=== PATIENT | male | born 1995 | race African-American/Black ===

== ENCOUNTER 2019-01-31 19:07 | Emergency (ER) | payer MEDICAID ==
[~2019-01-31] VITALS: Ht 175.3 cm; Wt 77.1 kg
[2019-01-31] MEDS ORDERED: LIDOCAINE W/ EPINEPHRINE 2% INJ 20ML VIAL IJ ONE (21:00)
[2019-01-31] MEDS ORDERED: cefTRIAXone SOD 1,000 MG VL IM ONE (21:30)
[2019-01-31] MEDS ORDERED: TETANUS-DIPTH-ACEL PERTUSSIS 0.5ML SYRG IM ONE (21:30)
[2019-01-31 21:43] VITALS: BP 134/86
== END 2019-01-31 22:10 | disposition home or self-care (01) ==
LOC: ER 19:11
DX: S61.411A Laceration without foreign body of right hand, initial encounter (principal); Z23 Encounter for immunization; V87.8XXA Person injured in other specified noncollision transport accidents involving motor vehicle (traffic), initial encounter; Y93.55 Activity, bike riding; Y92.488 Other paved roadways as the place of occurrence of the external cause; Y99.8 Other external cause status
CPT/HCPCS: 12002; 73120; 90471; 90715; 96372; 99283; J0696

== ENCOUNTER 2019-04-16 07:02 | Emergency (ER) | payer MEDICAID ==
[~2019-04-16] VITALS: Ht 177.8 cm; Wt 83.9 kg
[2019-04-16 07:15] VITALS: BP 129/72
== END 2019-04-16 09:00 | disposition home or self-care (01) ==
LOC: ER 07:02
DX: J06.9 Acute upper respiratory infection, unspecified (principal)

== ENCOUNTER 2020-12-07 09:26 | Emergency (ER) | payer MEDICAID ==
[~2020-12-07] VITALS: Ht 177.8 cm; Wt 83.9 kg
[2020-12-07 09:38] VITALS: BP 156/91
== END 2020-12-07 10:47 | disposition home or self-care (01) ==
LOC: ER 09:26
DX: J06.9 Acute upper respiratory infection, unspecified (principal); M79.10 Myalgia, unspecified site; R19.7 Diarrhea, unspecified; F17.210 Nicotine dependence, cigarettes, uncomplicated; Z20.822 Contact with and (suspected) exposure to COVID-19
CPT/HCPCS: 36415; 71045; 87426

== ENCOUNTER 2021-12-18 21:22 | Emergency (ER) | payer MEDICAID ==
[~2021-12-18] VITALS: Ht 177.8 cm; Wt 87.0 kg
[2021-12-18 21:50] VITALS: BP 130/70
== END 2021-12-19 02:26 | disposition left against medical advice (07) ==
LOC: ER 21:22
DX: R56.9 Unspecified convulsions (principal); Z53.21 Procedure and treatment not carried out due to patient leaving prior to being seen by health care provider

== ENCOUNTER 2024-06-13 05:28 | Emergency (ER) | payer MEDICAID ==
[~2024-06-13] VITALS: Ht 177.8 cm; Wt 95.0 kg
[2024-06-13] MEDS: LIDOCAINE 1% HCL (LOCAL ANESTH.) INJ 20ML MDV IJ ONE (06:41)
[2024-06-13 06:45] VITALS: BP 148/99; PULSE 83; RESP 16; TEMP 98.5; O2SAT 96
--- NOTE | 2024-06-13 06:53 | ED.PDOC ---
HPI Comments A 29 YEAR OLD MALE PRESENTS TO THE ED WITH CHIEF COMPLAINT OF LACERATION. PATIENT REPORTS THAT HE WAS AT WORK AT A [employer] WHEN A RACK OF TIRES ACCIDENTALLY FELL ON TOP OF HIM YESTERDAY. PATIENT RELAYS THAT THE RACK LACERATED HIS UPPER CHEST WALL, LEFT ANTERIOR SHOULDER, AND UPPER BACK. BLEEDING CONTROLLED. PATIENT DENIES FALL INJURY, SOB, CHEST PAIN, DIZZINESS, HEAD INJURY, NECK PAIN, BACK PAIN, NUMBNESS, OR WEAKNESS. NO OTHER SYMPTOMS REPORTED AT THIS TIME OF CARE. NO OTHER SYMPTOMS REPORTED AT THIS TIME OF CARE. Chief Complaint: Laceration Time Seen by MD: 06:35 Primary Care Provider: NONE Reviewed Notes: Nurses Notes, Medications, Allergies Allergies: Coded Allergies: NO KNOWN ALLERGIES (Unverified , 12/07/20) Information Source: Patient Mode of Arrival: Ambulatory Severity: Mild, Moderate Severity of Laceration: Controlled Bleeding Complexity: Simple Timing: Days Prehospital treatment: None Laceration Location: Chest, Other (LEFT SHOULDER) Mechanism: Metal, Work Related Last Tetanus: > 5 Years, Unknown Laceration Length (cm): 7 Skin Type: Linear Depth of Injury: SQ Tendon Injury: 0% Capillary Refill: < 3 seconds Tender: Mild, Moderate Discharge: Serosanguinous Erythema: Localized to Wound Edges Associated Signs and Symptoms: None Past Medical History PAST MEDICAL HISTORY: Denies Surgical History: Denies all surgeries Family History Family History: Reviewed,noncontributory to illness, No family hx of Cancer, No family hx of DM, No family hx of Heart kassy, No family hx of HTN, No family hx ofKidney kassy, No family hx of Liver kassy, No family hx of Lung kassy, No family hx of Stroke Social History Smoker: Cigarettes Alcohol: Occasionally Drugs: Marijuana Lives In: Home Constitutional: denies: chills, diaphoresis, fatigue, fever, malaise, sweats, weakness, others EENTM: denies: blurred vision, double vision, ear bleeding, ear discharge, ear drainage, ear pain, ear ringing, eye pain, eye redness, hearing loss, mouth pain, mouth swelling, nasal discharge, nose bleeding, nose congestion, nose pain, photophobia, tearing, throat pain, throat swelling, voice changes, others Respiratory: denies: cough, hemoptysis, orthopnea, SOB at rest, shortness of breath, SOB with excertion, stridor, wheezing, others Cardiovascular: denies: chest pain, dizzy spells, diaphoresis, Dyspnea on exertion, edema, irregular heart beat, left arm pain, lightheadedness, palpitations, PND, syncope, others Gastrointestinal: denies: abdomen distended, abdominal pain, blood streaked bowels, constipated, diarrhea, dysphagia, difficulty swallowing, hematemesis, melena, nausea, poor appetite, poor fluid intake, rectal bleeding, rectal pain, vomiting, others Genitourinary: denies: burning, dysuria, flank pain, frequency, hematuria, incontinence, penile discharge, penile sore, pain, testicle pain, testicle swelling, urgency, others Neurological: denies: dizziness, fainting, headache, left sided numbness, left sided weakness, numbness, paresthesia, pre-existing deficit, right sided numbness, right sided weakness, seizure, speech problems, tingling, tremors, weakness, others Musculoskeletal: denies: back pain, gout, joint pain, joint swelling, muscle pain, muscle stiffness, neck pain, others Integumetry: reports: laceration (LACERATIONS TO LEFT CHEST, LEFT SHOULDER, AND POSTERIOR LEFT SHOULDER); denies: bruises, change in color, change in hair/nails, dryness, lesions, lumps, rash, wounds, others Allergic/Immunocompromised: denies: Difficulty Healing, Frequent Infections, Hives, Itching, others Hematologic/Lymphatic: denies: anemia, blood clots, easy bleeding, easy bruising, swollen glands, others Endocrine: denies: excessive hunger, excessive sweating, excessive thirst, excessive urination, flushing, intolerance to cold, intolerance to heat, unexplained weight gain, unexplained weight loss, others Psychiatric: denies: anxiety, bipolar disorder, depression, hopeless, panic disorder, schizophrenia, sleepless, suicidal, others All Other Systems: Reviewed and Negative Physical Exam General Appearance: No Apparent Distress, Normal HEENT: Normal ENT Inspection, PERRL/EOMI Neck: Full Range of Motion, Non-Tender, Normal, Normal Inspection Respiratory: Chest Non-Tender, Lungs Clear, No Accessory Muscle Use, No Respiratory Distress, Normal Breath Sounds Cardiovascular: No Edema, No JVD, No Murmur, No Gallop, Normal Peripheral Pulses, Regular Rate/Rhythm Breast Exam: Deferred Gastrointestinal: No Organomegaly, Non Tender, No Pulsatile Mass, Normal Bowel Sounds, Soft Genitalia: Deferred Pelvic: Deferred Rectal: Deferred Extremities: No calf tenderness, Normal capillary refill, Normal inspection, Normal range of motion, Non-tender, No pedal edema Musculoskeletal : Apperance: Normal Neurologic: Alert, procurement consultant II-XII nml as Tested, No Motor Deficits, Normal Affect, Normal Mood, No Sensory Deficits Cerebellar Function: Normal Reflexes: Normal Skin: Dry, Lacerations (2CM LACERATION ON UPPER CHEST WALL, 2CM LACERATION ON LEFT ANTERIOR SHOULDER AND 3CM LACERATION ON MIDDLE UPPER BACK, NO BLEEDING AND SWELLING, NO FB. ), Normal Color, Warm Peripheral Pulses: 2+ carotid (R), 2+ carotid (L) Lymphatic: No Adenopathy Was a procedure done? Was a procedure done?: Yes Sedation Sedation?: No Laceration Repair : Location UPPER CHEST WALL, LEFT ANTERIOR SHOULDER, AND UPPER BACK WALL Length 2CM, 2CM, 3CM Anesthetic: Lidocaine, Without epi Laceration Repair Prep: Saline, by Irrigation, Manual Scrub Laceration Repair Wound Comple: subcut tissue repair Laceration Repair: Number of sutures (13, 4-0 ETHILON SUTURES), SQ, Size (4- 0), Simple, Bacitracin, Gauze Informed consent obtained: No Risks, benefits, and alternati: Yes Images 1 - 2 - 3 - Differential diagnosis Generic Laceration: Laceration X-Ray, Labs, Meds, VS Vital Signs Date Time Temp Pulse Resp B/P (MAP) Pulse Ox O2 Delivery O2 Flow Rate FiO2 06/13/24 06:45 98.5 83 16 148/99 (115) 96 98.5 06/13/24 06:45 83 16 96 Room Air 06/13/24 05:49 98.5 83 16 148/99 (115) 96 Current Medications Medications (Trade) Dose Ordered Sig/Maricruz Route Start Time Stop Time Status Last Admin Diphtheria/ Tetanus/Acell Pertussis (Boostrix T-Dap) 0.5 ml ONCE ONCE IM 06/13/24 07:00 06/13/24 07:01 DC 06/13/24 07:04 X-Ray, Labs, Meds, VS Comment EXTERNAL MEDICAL RECORDS REVIEWED: [NONE] INDEPENDENT HISTORIANS: [NONE] SOCIAL DETERMINANTS OF HEALTH: [NONE] LABS ORDERED: NONE REVIEWED AND INTERPRETED RESULTS: CHEST XR INTERPRETED BY ME. NO ACUTE FINDINGS. NO PNEUMONIA. NO CONSOLIDATIONS. NO INFILTRATES. PENDING RADIOLOGIST REPORT. IMAGING ORDERED: CHEST XR TREATMENTS ORDERED: TD 0.5ML IM PROCEDURES PERFORMED: SUTURED 3 LACERATIONS WITH 4-0 ETHILON SUTURES. CRITICAL CARE TIME: NONE I HAVE DISCUSSED THE PATIENT WITH THE ATTENDING PHYSICIAN DR. AIKEN AND HE AGREES WITH THE PATIENT'S PLAN OF CARE AND DISPOSITION. BASED ON HISTORY OF PRESENT ILLNESS, AND PHYSICAL EXAM, PATIENT WILL BE DISCHARGED HOME. DISCUSSED PLAN FOR DISCHARGE HOME WITH RX. MEDICATION WARNINGS GIVEN. SHARED DECISION MAKING: DISCUSSED WITH PATIENT THAT THEIR WORKUP WAS NORMAL. PATIENT INSTRUCTED TO FOLLOW UP WITH PRIMARY CARE PROVIDER IN 1-2 DAYS FOR RE- EVALUATION OF SYMPTOMS. PATIENT VERBALIZES UNDERSTANDING TO RETURN TO ED FOR NEW OR WORSENING SYMPTOMS OR IF FOLLOW UP WITH PCP CANNOT BE OBTAINED. PATIENT FEELS COMFORTABLE GOING HOME AT THIS TIME. ALL QUESTIONS ADDRESSED AT TIME OF DISCHARGE. Time of 1ST Reevaluation: 07:10 Reevaluation 1ST: Improved Patient Education/Counseling: Diagnosis, Treatment, Need For Follow Up Family Education/Counseling: Diagnosis, Treatment, No Family Present Medical Screening: No EMC Exist At This Time Departure 1 Departure Time of Disposition: 07:10 Impression: Primary Impression: Laceration of chest wall Qualified Codes: S21.112A - Laceration without foreign body of left front wall of thorax without penetration into thoracic cavity, initial encounter Additional Impressions: Laceration of back Qualified Codes: S21.212A - Laceration without foreign body of left back wall of thorax without penetration into thoracic cavity, initial encounter Laceration of left shoulder Qualified Codes: S41.012A - Laceration without foreign body of left shoulder, initial encounter Disposition: 01 HOME / SELF CARE / HOMELESS Condition: Stable Additional Instructions: FOLLOW-UP WITH PCP IN 1 TO 2 DAYS. TAKE MEDICATIONS PRESCRIBED. RETURN TO ED FOR ANY NEW OR WORSENING SYMPTOMS. Discharged With: Self Critical Care Note Critical Care Time?: No Stability Stability form required: No Heart Score Heart Score: Heart Score Response (Comments) Value History N/A 0 EKG N/A 0 Age N/A 0 Risk Factors N/A 0 Troponin N/A 0 Total 0 I personally scribed for ANTONY NEVAREZ ([email or web address]) on 06/13/24 at 06:53. Electronically submitted by Carlitos Mott ([email or web address]). ANTONY NEVAREZ Jun 13, 2024 06:53
[2024-06-13] MEDS: TETANUS-DIPTH-ACEL PERTUSSIS 0.5ML SYR Tdap IM ONE (07:04)
--- NOTE | 2024-06-13 07:16 | DVH ---
EXAM: XR Chest, 2 Views CLINICAL INDICATION: laceration upper chest wall and upper back. TECHNIQUE: Frontal and lateral views of the chest. COMPARISON: None FINDINGS: LUNGS AND PLEURAL SPACES: Unremarkable. No consolidation. No pneumothorax. HEART: Unremarkable. No cardiomegaly. MEDIASTINUM: Unremarkable. Normal mediastinal contour. BONES/JOINTS: Unremarkable. No acute fracture. OTHER FINDINGS: . None. IMPRESSION: No acute cardiopulmonary process.
== END 2024-06-13 07:12 | disposition home or self-care (01) ==
LOC: ER 05:28
DX: S21.119A Laceration without foreign body of unspecified front wall of thorax without penetration into thoracic cavity, initial encounter (principal); S21.219A Laceration without foreign body of unspecified back wall of thorax without penetration into thoracic cavity, initial encounter; S41.012A Laceration without foreign body of left shoulder, initial encounter; F17.210 Nicotine dependence, cigarettes, uncomplicated; W19.XXXA Unspecified fall, initial encounter; Y93.89 Activity, other specified; Y92.89 Other specified places as the place of occurrence of the external cause; Y99.0 Civilian activity done for income or pay
CPT/HCPCS: 12002; 71046; 90471; 90715; 99283; J2003